=== PATIENT | male | born 1940 | race Caucasian/White ===

== ENCOUNTER → 2023-08-16 07:07 | Outpatient (REF) | payer OTHER, SELFPAY | LOC: DHCBC/DCA 07:07 | PROVIDERS: ATTENDING PHYSICIAN Internal Medicine Cardiovascular Disease; FAMILY PHYSICIAN Internal Medicine | DX: I45.10 Unspecified right bundle-branch block (principal) | CPT/HCPCS: 78452; 93017; A9500; J2785 ==

== ENCOUNTER 2023-10-15 00:19 | Emergency (ER) | payer OTHER, SELFPAY ==
[2023-10-15 00:19] VITALS: BMI 25.6
[2023-10-15 00:21] VITALS: BP 144/90
[2023-10-15 01:25] LABS: Urine Albumin 2+ (Neg - Trace); Urine Bilirubin 1+ (Negative); Urine Character Cloudy (Clear); Urine Color Brown; Urine Glucose Negative (Negative); Urine Ketone Trace (Negative); Urine Leukocyte 2+ (Negative); Urine Nitrite Positive (Negative); Urine Occult Blood 4+ (Negative); Urine Urobilinogen 1+ (Neg - 1+)
[2023-10-15 01:26] LABS: Urine Red Blood Cell >100 /HPF (0-2); Urine White Cell >100 /HPF (0-5)
[2023-10-15 01:27] LABS: Urine Bacteria Moderate (Negative)
--- NOTE | 2023-10-15 01:43 | ED.GENMED ---
Addendum entered and electronically signed by Erich Mitchell PA-C 10/19/23 15:21:
UCx w/ MSSA and Enterococcus, sensitive to levofloxacin. Pt given Rx for cephalexin. Called pt, no answer, line busy. Left message for daughter Chel, Rx for levoflox sent to pharmacy
Original Note:
History of Present Illness
General
Chief Complaint: Male Genito-Urinary Symptoms
Source: patient
Exam Limitations: none
Time Seen by Provider: 10/15/23 00:32
Nursing documentation reviewed up to this point in time: agreed with
Travel History
Have you had any contact with someone who has COVID-19?: No
Do you have any symptoms of coronavirus? Fever > 100 degrees, chills, cough, shortness of breath, sore throat, loss of taste or smell, muscle aches, or headache?: No
History of Present Illness
History of Present Illness:
82-year-old male past medical history of A-fib currently taking aspirin, BPH presenting to the emergency department today with concerns of urinary retention had a catheter removed yesterday by urology had an for a week. Difficulty with urination at
home. Feels that his bladder is full. Denies any fevers or systemic symptoms.
Past History
Past History
ED Past Medical History: Arrthythmia (atrial fib), Hypercholesterolemia and Other (macular degeneration)
ED Past Surgical History: Other (bilateral rotator cuff atrophy)
Social History
Tobacco: Non-smoker
Personal:
Living: with family
Review of Systems
Review of Systems
Allergies reviewed?: Yes
All Other Systems: ROS reviewed and negative except as documented in HPI and ROS
Phy Exam
Physical Exam
Physical Exam:
GENERAL: Alert , in no apparent distress
EYE: pupils equal and reactive
NECK: Supple, no significant adenopathy.
ENT: o/p clr, mmm.
CARDIAC: Regular rate and rhythm .
LUNGS: Clear breath sounds bilaterally, no acute respiratory distress, no wheezes/rales/rhonchi
ABDOMEN: Mild pain to the suprapubic region, otherwise soft, without focal tenderness, no r/g, no cvat
NEUROLOGICAL: Alert and oriented, no focal neuro deficits
SKIN: Warm and dry, skin intact.
MUSCULOSKELETAL: No edema, well perfused.
PSYCH: Normal and appropriate interaction.
Course
Orders/Labs/Results
Orders:
Orders
10/15/23 00:51
Lidocaine 2% [Lidocaine Uro-Jet 2%] 1 syringe .ROUTE .[facility]
10/15/23 00:54
Knight Placement- Treatment ONCE
Reason for insertion: Acute Retention
Knight Catheter [Catheter- Indwelling] As Directed
Reason for insertion: Acute Retention
Discontinue Date/Time: 10/18/23 0600
10/15/23 01:09
Urinalysis Reflex To Culture Urgent
Date Specimen was Collected: 10/15/23
Time Specimen was Collected: 00:55
Urine Microscopic Reflex Cult Urgent
Urine Culture Urgent
HUONG Source: U
Specimen Description:
Date Specimen was Collected: 10/15/23
Time Specimen was Collected: 00:55
10/15/23 01:41
Cephalexin Monohydrate [Keflex] 500 mg PO NOW STA
Abnormal Lab Results
10/15/23
01:09
Urine Ketones Trace A
(Negative)
Ur Occult Blood Reflex 4+ A
(Negative)
Urine Nitrite (Reflex) Positive A
(Negative)
Urine Bilirubin 1+ A
(Negative)
Leukocyte Esterase Rfl 2+ A
(Negative)
Urine RBC >100 A /HPF
(0-2)
Urine WBC (Reflex) >100 A /HPF
(0-5)
Urine Bacteria (Reflex) Moderate A
(Negative)
Urine Albumin (Reflex) 2+ A
(Neg - Trace)
Vital Signs
Initial and Last Documented VS:
Initial Vital Signs
Temp Pulse Resp BP Pulse Ox
100.3 F 108 20 144/90 91
10/15/23 00:21 10/15/23 00:21 10/15/23 00:21 10/15/23 00:21 10/15/23 00:21
Last Documented Vital Signs
Temp Pulse Resp BP Pulse Ox
100.3 F 108 20 144/90 91
10/15/23 00:21 10/15/23 00:21 10/15/23 00:21 10/15/23 00:21 10/15/23 00:21
MDM/Problems Addressed
MDM/Problems Addressed:
82-year-old male presenting to the emergency department today with concerns of difficulty with urination. Denies additional concerns at his Knight catheter removed yesterday trouble voiding throughout the night tonight has a follow-up appointment
this morning. Catheter placed patient claims symptoms are now fully resolved no additional complaints urinalysis with moderate bacteria with large amount of white blood cells and nitrites plan to start antibiotics pending follow-up.
*Critical Care Note
Total Time (30-74mins, 75-104mins- exclusive of procedures): Not Applicable
ED Attending Note
-
Portions of this chart may have been created with voice recognition software.� Occasional wrong word or��sound alike� substitutions may have occurred due to the inherent limitations of voice recognition software.
Discharge Plan
Departure
Patient Disposition: Home (Routine Discharge)
Date of Disposition: 10/15/23
Time of Disposition: 01:45
Patient with high blood pressure during this ER visit?: No
Condition: Good
Covid-19: Not Applicable
Discharge Problem:
Acute urinary retention, Acute UTI
Instructions: How to Care for Your Knight Catheter, Male, Urinary Retention (DC)
Prescriptions:
New
cephalexin 500 mg capsule
500 mg PO QID 7 Days Qty: 28 0RF
No Action
atorvastatin 10 MG tablet
10 mg PO QPM
acetaminophen 325 MG tablet
650 mg PO QID 0RF
aspirin 81 mg Tablet
81 mg PO DAILY
finasteride 5 mg Tablet
5 mg PO DAILY
Eye-Vites Tablet
2 tab PO DAILY
Rx Instructions:
AREDS-2
Referrals:
Luke Shaw MD [Family Provider] -
Activity Restrictions/Additional Instructions:
You came to the emergency department today with concerns of difficulty urinating. You had a Knight catheter placed and also was started on antibiotics closely with your urologist. Return to the emergency department for any worsening, new or
concerning symptoms.
Interventions
Interventions:
*Risk Screen - Suicide Last Done: 10/15/23 00:21
*General Assessment Last Done: 10/15/23 00:21
*Neglect/Abuse Screening Last Done: 10/15/23 00:21
ED- Fall Risk Assessment Last Done: 10/15/23 00:21
*ED COVID-19 Vaccine History Last Done: 10/15/23 00:21
ED-Male Genitourinary Assessment Last Done: 10/15/23 01:14
Discharge Date and Time
Print Language: BRUNEIAN
[2023-10-15] MEDS: KEFLEX 500 MG PO (01:57)
[2023-10-15 02:25] VITALS: BP 138/74
== END 2023-10-15 02:30 | disposition home or self-care (01) ==
LOC: EMR 00:19
PROVIDERS: Physician Assistant; EMERGENCY PHYSICIAN Student in an Organized Health Care Education/Training Program; FAMILY PHYSICIAN Internal Medicine Geriatric Medicine
DX: N39.0 Urinary tract infection, site not specified (principal); N40.1 Benign prostatic hyperplasia with lower urinary tract symptoms; R33.8 Other retention of urine; I48.91 Unspecified atrial fibrillation
CPT/HCPCS: 99283; 51798; 51702; 81003; 81015; 87077; 87086; 87147; 87186

== ENCOUNTER 2024-02-10 06:08 | Day surgery (SDC) | payer OTHER, SELFPAY ==
[2024-02-08 06:57] VITALS: BMI 25.9
[2024-02-08 09:46] LABS: Hematocrit 47.8 % (39.0-52.0); Hemoglobin 15.6 g/dL (13.0-18.0); Mean Corp Hgb Conc. 32.6 g/dL (33.0-37.0); Mean Corpuscular Hgb 30.5 pg (27.0-31.0); Mean Corpuscular Volume 93.4 fL (80.0-94.0); Mean Platelet Volume 9.4 fL (7.4-10.4); Platelet Count 271 10^3/uL (130-400); Red Blood Cell Count 5.12 10^6/uL (4.70-6.10); Red Cell Dist. Width 13.4 % (11.5-14.5); White Blood Cell Count 8.3 10^3/uL (4.8-10.8)
[2024-02-08 09:54] LABS: INR 1.13; PT 14.3 Sec (11.4-14.6)
[2024-02-08 09:56] LABS: APTT 28.2 Sec (23.4-35.0)
[2024-02-08 10:27] LABS: Blood Urea Nitrogen 23 mg/dl (9-20); Calcium 9.2 mg/dl (8.4-10.2); Carbon Dioxide 22 mmol/L (22-30); Chloride 107 mmol/L (98-107); Estimated Creatinine Clearance 52 ml/min; Glucose 81 mg/dl (70-99); Potassium 4.4 mmol/L (3.5-5.1); Sodium 144 mmol/L (135-145); eGFR > 60.00
[2024-02-10] VITALS (15 sets, daily range): BP systolic 103–136; BP diastolic 62–83; BMI 25.9
[2024-02-10] MEDS: NORMOSOL-R/PLASMALYTE-A 1000 IV (06:45)
[2024-02-10 07:08] LABS: Urine Albumin Trace (Neg - Trace); Urine Bilirubin Negative (Negative); Urine Character Clear (Clear); Urine Color Yellow; Urine Glucose Negative (Negative); Urine Ketone Negative (Negative); Urine Leukocyte 2+ (Negative); Urine Nitrite Positive (Negative); Urine Occult Blood 2+ (Negative); Urine Urobilinogen Negative (Neg - 1+)
[2024-02-10 07:43] LABS: Urine Bacteria Few (Negative)
--- NOTE | 2024-02-10 08:51 | W.SUR.POST ---
Surgical Immediate Post Op
Note
Pre Op Diagnosis: bph retention
Post Op Diagnosis:same
Procedure Performed: TURP
Primary Surgeon: Jeremi
Secondary Surgeons:
Anesthesia: sabino general
Estimated Blood Loss: 20cc
Fluids: nss
Drains/Shunts: [address]
Specimens/Cultures: prostatic chips
Doppler/Duplex/Angio (Y/N):
Complications:0
Operative Findings: bph highly trabeculated bladder
--- NOTE | 2024-02-10 08:57 | W.PN.URO.CBU ---
Today's Communication / Plan
-
if nolg clots tryand wean off cbi by am
Assessment / Plan
-
s/p turp post op check stable if comtinue s present course then stop traction encorage fluids and try and slow cbi by am wednesday
Diagnosis
-
Date of Service: February 10, 2024
-
Patient Diagnosis:
bph retentioin
Post Op Day: post op check
Subjective
-
groggy no pain
Objective
-
Vital Signs
Temp Pulse Resp BP Pulse Ox
98.2 F 85 18 136/80 95
02/10/24 06:22 02/10/24 06:22 02/10/24 06:22 02/10/24 06:22 02/10/24 06:22
Laboratory Results
02/08/24 06:53
02/08/24 06:53
Review of Systems
-
: Dark Urine
Physical Exam
-
General - well developed, well nourished, no acute distress
Chest - clear bilaterally
Abdomen - soft, non-tender, positive bowel sounds, no CVAT, no incisional pain or distention
Genitalia - normal
Rectal - normal
Skin - warm & dry with no rash
Neuro - AOx3, no motor deficits
Extremities - no clubbing, no cyanosis, no edema
Incision - clean, dry
Dressing - clean, dry, intactfolet=y mclear
Care Review
Data Reviewed
Discussed with: Nursing and Family
[2024-02-10] MEDS: DETROL LA 4 MG PO (09:43)
[2024-02-10] MEDS: PROSCAR 5 MG PO (11:18)
--- NOTE | 2024-02-10 11:24 | PTCARENOTE ---
Pt arrived to 2S in bed. Full assessment completed. CBI infusing per order, light pink/punch colored output noted. R outer eyelid noted with scab, pt states ' its from a lazy tear duct'. Pt instructed to ring for assistance getting OOB, verbalized
understanding. Bed locked and in the lowest position, safety maintained. Oriented to room and call ramirez, children at bedside.
[2024-02-10] MEDS: LIPITOR 10 MG PO (22:12)
[2024-02-11 02:55] VITALS: BP 115/63
[2024-02-11] MEDS: LEVAQUIN 100 IV (06:09)
[2024-02-11 06:12] LABS: Hemoglobin 14.1 g/dL (13.0-18.0)
[2024-02-11] MEDS: PROSCAR 5 MG PO (07:21)
[2024-02-11] MEDS: OCUVITE SOFTGEL 1 CAP PO (07:21)
[2024-02-11 08:22] VITALS: BP 121/71
--- NOTE | 2024-02-11 10:55 | CM ---
Met with pt and his daughter at bedside
Pt reports he lives alone in [facility] apartment with elevator access; FF set-up
Independent, active, drives at baseline
DME - rolling walker, single point cane
SNF/HH - denies past hx
Has ride home at discharge
PCP - Luke Shaw
Pharm - [facility]
CM will follow for d/c needs
Plan - anticipate home no needs
[2024-02-11 12:01] VITALS: BP 118/86
--- NOTE | 2024-02-11 12:57 | W.PN.URO.CBU ---
Today's Communication / Plan
-
home today if stable replace louie if no void or distntion by 430 but if vids check pvr no louie if unsder 100c tt flasher if pvr 101cc or more if home with louie pleas provide louie and lg bag and pm bag and leg strap
Assessment / Plan
-
s/p turp voiding trial if voids home pavel as long as pvr under 100cc if no void the replace louie and home wth louie and leg vbag
Diagnosis
-
Date of Service: February 11, 2024
-
Patient Diagnosis:
Post Op Day:
Patient Diagnosis:
bph retentioin
Post Op Day: post op check
Subjective
-
has not voided yet foleyout 2 hours asx does not fel full
Objective
-
Vital Signs
Temp Pulse Resp BP Pulse Ox
98.1 F 75 16 118/86 96
02/11/24 12:01 02/11/24 12:01 02/11/24 12:01 02/11/24 12:01 02/11/24 12:01
Intake and Output
02/10/24 02/11/24 02/12/24
06:59 06:59 06:59
Intake Total 1460 / 1460
Output Total 1200 / 1200 2850 / 2850
Balance 260 / 260 -2850 / -2850
Intake:
Oral fluids 1260 / 1260
IV fluids (Total) 200 / 200
Normosol 200 / 200
Output:
True Urine Output from CBI 1200 / 1200 2850 / 2850
Laboratory Results
02/11/24 04:50
02/08/24 06:53
Review of Systems
-
: No Symptoms
Physical Exam
-
General - well developed, well nourished, no acute distress
Chest - clear bilaterally
Abdomen - soft, non-tender, positive bowel sounds, no CVAT, no incisional pain or distention
Genitalia - normal
Rectal - normal
Skin - warm & dry with no rash
Neuro - AOx3, no motor deficits
Extremities - no clubbing, no cyanosis, no edema
Incision - clean, dry
Dressing - clean, dry, intact
Care Review
Data Reviewed
Discussed with: Nursing and Family
[2024-02-11] MEDS: FLUAD (65 yr+) 2024-2025 FORMULA 0.5 ML IM (13:29)
== END 2024-02-11 13:55 | disposition home or self-care (01) ==
LOC: SDS 06:08
PROVIDERS: ATTENDING PHYSICIAN Specialist; FAMILY PHYSICIAN Internal Medicine Geriatric Medicine; OTHER PHYSICIAN Internal Medicine Cardiovascular Disease
DX: N40.1 Benign prostatic hyperplasia with lower urinary tract symptoms (principal); R33.8 Other retention of urine
CPT/HCPCS: 52601; 88305; 36415; 80048; 81003; 81015; 85014; 85018; 85027; 85610; 85730; 87077; 87086; 87186; 90662; G0008; J1580